=== PATIENT | male | born 1955 | race African-American/Black ===

== ENCOUNTER 2018-12-03 09:57 | Inpatient (IN) | payer OTHER ==
[2018-12-03 10:20] VITALS: BMI 21.6
--- NOTE | 2018-12-03 10:38 | HP ---
CIWA Score - Admission Criteria [facility] Guidelines: Admission for Medically Managed Detox: Requires at least one of the followin. CIWA greater than 12 2. Seizures within the past 24 hours 3. Delirium tremens within the past 24 hours 4. Hallucinations within the past 24 hours 5. Acute intervention needed for co occurring medical disorder 6. Acute intervention needed for co occurring psychiatric disorder 7. Severe withdrawal that cannot be handled at a lower level of care (continued vomiting, continued diarrhea, abnormal vital signs) requiring intravenous medication and/or fluids 8. Admission ROS [facility] Chief Complaint: "i want to go to rehab for my cocaine use" Allergies/Adverse Reactions: Allergies Allergy/AdvReac Type Severity Reaction Status Date / Time No Known Allergies Allergy Verified 12/03/18 10:15 History of Present Illness: Patient is a 63 year old black male with history of cocaine dependence. He has never been to detox or other program. However, he has attempted OTC multiple times and failed to be abstinent. He wants to enter rehab and then follow up with outpatient treatment. Patient smokes 2-3 ciggs per day for many years. Used to smoke 1ppd until 1999. PMH: Arthritis Psurg Hx: None All: NKDA Housing he is working to obtain. He is also a of [place] war. Exam Limitations: No Limitations - Ebola screening Have you traveled outside of the country in the last 21 days: No (N) Have you had contact with anyone from an Ebola affected area: No Have you been sick,other than usual withdrawal symptoms: No Do you have a fever: No - Review of Systems Constitutional: No Symptoms Reported EENT: reports: No Symptoms Reported Respiratory: reports: No Symptoms reported Cardiac: reports: No Symptoms Reported GI: reports: No Symptoms Reported : reports: No Symptoms Reported Musculoskeletal: reports: Joint Pain Integumentary: reports: No Symptoms Reported Neuro: reports: No Symptoms reported Endocrine: reports: No Symptoms Reported Hematology: reports: No Symptoms Reported Psychiatric: reports: No Sypmtoms Reported, Mood/Affect Appropiate, Orientated x3 Other Systems: Reviewed and Negative Patient History - Patient Medical History Hx Anemia: No Hx Asthma: No Hx Chronic Obstructive Pulmonary Disease (COPD): No Hx Cancer: No Hx Cardiac Disorders: No Hx Congestive Heart Failure: No Hx Hypertension: Yes (amlodipine) Hx Hypercholesterolemia: No Hx Pacemaker: No HX Cerebrovascular Accident: No Hx Seizures: No Hx Dementia: No Hx Diabetes: No Hx Gastrointestinal Disorders: No Hx Liver Disease: No Hx Genitourinary Disorders: No Hx Sexually Transmitted Disorders: No Hx Renal Disease (ESRD): No Hx Thyroid Disease: No Hx Human Immunodeficiency Virus (HIV): No (last tested 1 year ago) Hx Hepatitis C: No (las tested 1 year ago) Hx Depression: No Hx Suicide Attempt: No Hx Bipolar Disorder: No Hx Schizophrenia: No - Patient Surgical History Past Surgical History: No - PPD History Previous Implant?: Yes Documented Results: Negative w/proof Implanted On Prior [facility]mission?: No Date: 12/05/17 ([facility]) Results: negative PPD to be Administered?: No - Reproductive History Patient is a Female of Child Bearing Age (11 -55 yrs old): No - Smoking Cessation Smoking history: Current every day smoker Have you smoked in the past 12 months: Yes Aproximately how many cigarettes per day: 3 Hx Chewing Tobacco Use: No Initiated information on smoking cessation: No 'Breaking Loose' booklet given: 12/03/18 - Substance & Tx. History Hx Alcohol Use: No Hx Substance Use: Yes Substance Use Type: Cocaine Hx Substance Use Treatment: Yes - Substances abused Crack Substance route: Smoking Frequency: 3-6 times per week Amount used: $60 Age of first use: 31 Date of last use: 12/02/18 Family Disease History - Family Disease History Family History: Unremarkable Admission Physical Exam BHS - Vital Signs Vital Signs: Vital Signs - 24 hr 12/03/18 10:16 Temperature 98.2 F Pulse Rate 71 Respiratory 20 Rate Blood Pressure 135/87 - Physical General Appearance: Yes: No Apparent Distress, Nourished, Appropriately Dressed HEENTM: Yes: EOMI, Normocephalic, ALVIN, Pharynx Normal, Tm's normal Respiratory: Yes: Chest Non-Tender, Lungs Clear, Normal Breath Sounds, No Respiratory Distress, No Accessory Muscle Use Neck: Yes: No masses,lesions,Nodules, Supple, Trachea in good position Breast: Yes: Within Normal Limits Cardiology: Yes: Regular Rhythm, Regular Rate, S1, S2 Abdominal: Yes: Normal Bowel Sounds, Non Tender, Flat Genitourinary: Yes: Within Normal Limits Back: Yes: Normal Inspection Musculoskeletal: Yes: full range of Motion, Gait Steady Extremities: Yes: Normal Capillary Refill, Normal Inspection, Normal Range of Motion, Non-Tender Neurological: Yes: replenishment specialist II-XII NML intact, Fully Oriented, Alert, Motor Strength 5/5, Normal Mood/Affect Integumentary: Yes: Normal Color, Warm Lymphatic: Yes: Within Normal Limits - Diagnostic (1) Cocaine use disorder, mild, abuse Current Visit: Yes Status: Acute (2) Hypertension Current Visit: Yes Status: Acute Cleared for Admission S - Detox or Rehab [facility] Level of Care: Medically Managed Screened but not Admitted - Documentation of Visit Screened but not Admitted: No Breathalyzer - Breathalyzer Breathalyzer: 0 Vital Signs - Vital Signs Vital signs refused: No Temperature: 98.2 F Temperature source: Oral Pulse Rate: 71 Respiratory Rate: 20 Blood Pressure: 135/87 BP Location: Left Arm Blood Pressure position: Sitting - Height Height: 5 ft 7 in - Weight Weight: 138 lb Weight measurement method: Standing scale - BMI Body Mass Index (BMI): 21.6 - Bowel Function Bowel Movement: No Urine Drug Screen - Control Is test valid?: Yes - Results Drug screen NEGATIVE: No Urine drug screen results: FRANNIE-Cocaine Inpatient Rehab Admission - Rehab Decision to Admit Inpatient rehab admission?: Yes - Initial Determination Are CD services needed?: Yes Free of communicable disease: Yes Not in need of hospitalization: Yes - Rehab Admission Criteria Previous failed treatment: Yes Poor recovery environment: Yes Comorbidities: Yes Lacks judgement: Yes Patient is meeting Inpatient Rehab admission criteria:: Yes
[2018-12-03] MEDS ORDERED: guaiFENesin 200 MG/10 ML 10 ML UNIT-DOSE CUPS PO PRN (10:45)
[2018-12-03] MEDS ORDERED: MAGNESIUM CITRATE 300 ML BOTTLE PO PRN (10:45)
[2018-12-03] MEDS ORDERED: ACETAMINOPHEN 325 MG TABLET (FP) PO PRN (10:45)
[2018-12-03] MEDS ORDERED: P-EPHED 60MG/TRIPROLIDI 2.5MG TABLET PO PRN (10:45)
[2018-12-03] MEDS ORDERED: IBUPROFEN 400 MG TABLET (FP) PO PRN (10:45)
[2018-12-03] MEDS ORDERED: MENTHOL/PHENOL 1 EACH UD MM PRN (10:45)
[2018-12-03] MEDS ORDERED: MAGNESIUM HYDROX 2400MG/30ML ORAL SUSPENSION 30 ML CUP PO PRN (10:45)
[2018-12-03] MEDS ORDERED: LOPERAMIDE HCL 2 MG CAPSULE PO PRN (10:45)
[2018-12-03] MEDS: amLODIPine BESYLATE 10 MG TABLET (FP) PO SCH (11:52)
[2018-12-03] MEDS: CLOTRIMAZOLE 1% CREAM 15 GM TUBE TP SCH ×2 (12:52→22:02)
[2018-12-03 15:05] LABS: HEMATOCRIT 39.3 % (35.4-49); HEMOGLOBIN 13.2 GM/dL (11.7-16.9); MCH 29.9 pg (25.7-33.7); MCHC 33.7 g/dl (32.0-35.9); MEAN CELL VOLUME 88.6 fl (80-96); MEAN PLT VOLUME 9.4 fl (7.5-11.1); PLATELET COUNT 237 K/MM3 (134-434); RBC 4.43 M/mm3 (4.00-5.60); WHITE BLOOD COUNT 7.1 K/mm3 (4.0-10.0)
[2018-12-03 15:21] LABS: ALBUMIN 3.7 g/dl (3.4-5.0); BILIRUBIN,TOTAL 0.4 mg/dL (0.2-1); BLOOD UREA NITROGEN 16.7 mg/dL (7-18); CALCIUM 9.9 mg/dL (8.5-10.1); CREATININE 1.4 mg/dL (0.55-1.3); POTASSIUM 3.6 mmol/L (3.5-5.1); TOT PROT 6.4 g/dl (6.4-8.2)
[2018-12-03] MEDS: THIAMINE HCL 100 MG TABLET (FP) PO SCH (21:46)
[2018-12-03] MEDS: NICOTINE POLACRILEX 2 MG GUM BUC PRN (21:47)
[2018-12-03] MEDS ORDERED: MELATONIN 5 MG TABLETS PO PRN (22:00)
[2018-12-04] MEDS: NICOTINE POLACRILEX 2 MG GUM BUC PRN ×2 (06:18→21:48)
[2018-12-04] MEDS: CLOTRIMAZOLE 1% CREAM 15 GM TUBE TP SCH ×2 (10:37→21:48)
[2018-12-04] MEDS: amLODIPine BESYLATE 10 MG TABLET (FP) PO SCH (10:37)
[2018-12-04] MEDS: PRENATAL VITAMINS W/ FOLIC ACID TABLET (FP) PO SCH (10:37)
[2018-12-04 12:09] LABS: URINE APPEARANCE CLEAR; URINE BILIRUBIN NEGATIVE (NEGATIVE); URINE COLOR YELLOW; URINE GLUCOSE (UA) NEGATIVE (NEGATIVE); URINE KETONE NEGATIVE (NEGATIVE); URINE LEUK ESTERASE NEGATIVE (NEGATIVE); URINE NITRITE NEGATIVE (NEGATIVE); URINE PROTEIN NEGATIVE (NEGATIVE); URINE UROBILINOGEN 0.2 mg/dL (0.2-1.0)
[2018-12-04] MEDS: THIAMINE HCL 100 MG TABLET (FP) PO SCH (21:48)
[2018-12-05] MEDS: NICOTINE POLACRILEX 2 MG GUM BUC PRN ×3 (06:30→22:13)
[2018-12-05] MEDS: CLOTRIMAZOLE 1% CREAM 15 GM TUBE TP SCH ×2 (10:16→22:12)
[2018-12-05] MEDS: PRENATAL VITAMINS W/ FOLIC ACID TABLET (FP) PO SCH (10:16)
[2018-12-05] MEDS: amLODIPine BESYLATE 10 MG TABLET (FP) PO SCH (10:16)
[2018-12-05] MEDS: THIAMINE HCL 100 MG TABLET (FP) PO SCH (22:12)
[2018-12-06] MEDS: amLODIPine BESYLATE 10 MG TABLET (FP) PO SCH (10:30)
[2018-12-06] MEDS: PRENATAL VITAMINS W/ FOLIC ACID TABLET (FP) PO SCH (10:30)
[2018-12-06] MEDS: CLOTRIMAZOLE 1% CREAM 15 GM TUBE TP SCH ×2 (10:30→21:44)
[2018-12-06] MEDS: NICOTINE POLACRILEX 2 MG GUM BUC PRN ×3 (10:32→21:44)
[2018-12-06] MEDS: THIAMINE HCL 100 MG TABLET (FP) PO SCH (21:44)
[2018-12-07] MEDS: amLODIPine BESYLATE 10 MG TABLET (FP) PO SCH (10:45)
[2018-12-07] MEDS: CLOTRIMAZOLE 1% CREAM 15 GM TUBE TP SCH ×2 (10:45→21:53)
[2018-12-07] MEDS: PRENATAL VITAMINS W/ FOLIC ACID TABLET (FP) PO SCH (10:45)
[2018-12-07] MEDS: NICOTINE POLACRILEX 2 MG GUM BUC PRN ×2 (10:46→21:53)
[2018-12-07] MEDS: THIAMINE HCL 100 MG TABLET (FP) PO SCH (21:52)
[2018-12-08] MEDS: MAG HYDROX/AL HYDROX/SIMETH 30 ML UNIT-DOSE CUP PO PRN (08:06)
[2018-12-08] MEDS: amLODIPine BESYLATE 10 MG TABLET (FP) PO SCH (11:04)
[2018-12-08] MEDS: PRENATAL VITAMINS W/ FOLIC ACID TABLET (FP) PO SCH (11:04)
[2018-12-08] MEDS: NICOTINE POLACRILEX 2 MG GUM BUC PRN ×3 (11:05→21:48)
[2018-12-08] MEDS: CLOTRIMAZOLE 1% CREAM 15 GM TUBE TP SCH ×2 (11:05→21:48)
[2018-12-08] MEDS: THIAMINE HCL 100 MG TABLET (FP) PO SCH (21:47)
[2018-12-09] MEDS: PRENATAL VITAMINS W/ FOLIC ACID TABLET (FP) PO SCH (10:44)
[2018-12-09] MEDS: CLOTRIMAZOLE 1% CREAM 15 GM TUBE TP SCH ×2 (10:44→22:09)
[2018-12-09] MEDS: amLODIPine BESYLATE 10 MG TABLET (FP) PO SCH (10:44)
[2018-12-09] MEDS: NICOTINE POLACRILEX 2 MG GUM BUC PRN ×2 (10:44→22:11)
[2018-12-09] MEDS: MAG HYDROX/AL HYDROX/SIMETH 30 ML UNIT-DOSE CUP PO PRN (22:07)
[2018-12-09] MEDS: THIAMINE HCL 100 MG TABLET (FP) PO SCH (22:08)
[2018-12-10] MEDS: amLODIPine BESYLATE 10 MG TABLET (FP) PO SCH (10:47)
[2018-12-10] MEDS: PRENATAL VITAMINS W/ FOLIC ACID TABLET (FP) PO SCH (10:47)
[2018-12-10] MEDS: CLOTRIMAZOLE 1% CREAM 15 GM TUBE TP SCH ×2 (10:48→22:02)
[2018-12-10] MEDS: NICOTINE POLACRILEX 2 MG GUM BUC PRN ×3 (10:49→22:03)
--- NOTE | 2018-12-10 11:35 | PN ---
[facility] Progress Note Note: Pt c/o bilateral hand pain, right hand more painful with movement than left hand. Pt states it is a chronic complaint for many years and saw his primary provider in the past but never followed up with appointments. Pt denies any recent truama or falls. 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 Vital Signs - 24 hr 12/10/18 12/10/18 12/10/18 00:30 03:30 06:55 Temperature 98.2 F Pulse Rate 75 Respiratory 18 18 18 Rate Blood Pressure 138/84 Laboratory Tests 12/03/18 12/03/18 12/03/18 11:10 11:10 11:10 WBC 7.1 RBC 4.43 Hgb 13.2 Hct 39.3 MCV 88.6 MCH 29.9 MCHC 33.7 RDW 15.0 Plt Count 237 MPV 9.4 Sodium 142 Potassium 3.6 Chloride 106 Carbon Dioxide 30 Anion Gap 5 L BUN 16.7 Creatinine 1.4 H Est GFR (CKD-EPI)AfAm 61.97 Est GFR (CKD-EPI)NonAf 53.47 Random Glucose 83 Calcium 9.9 Total Bilirubin 0.4 AST 26 ALT 18 Alkaline Phosphatase 63 Total Protein 6.4 Albumin 3.7 Urine Color Urine Appearance Urine pH Ur Specific Comfort Urine Protein Urine Glucose (UA) Urine Ketones Urine Blood Urine Nitrite Urine Bilirubin Urine Urobilinogen Ur Leukocyte Esterase RPR Titer Nonreactive Hep C Ab Diagnostic HIV 1&2 Ag/Ab, 4th Gen HIV 1&2 Antibody Screen HIV P24 Antigen TB (QFT) Incubation TB Test (QFT) Nil TB Test (QFT) Mitogen TB Test (QFT) Antigen TB Test (QFT) TB Positive Criteria 12/03/18 12/03/18 12/04/18 11:10 11:10 09:00 WBC RBC Hgb Hct MCV MCH MCHC RDW Plt Count MPV Sodium Potassium Chloride Carbon Dioxide Anion Gap BUN Creatinine Est GFR (CKD-EPI)AfAm Est GFR (CKD-EPI)NonAf Random Glucose Calcium Total Bilirubin AST ALT Alkaline Phosphatase Total Protein Albumin Urine Color Yellow Urine Appearance Clear Urine pH 5.0 Ur Specific Comfort 1.007 L Urine Protein Negative Urine Glucose (UA) Negative Urine Ketones Negative Urine Blood Negative Urine Nitrite Negative Urine Bilirubin Negative Urine Urobilinogen 0.2 Ur Leukocyte Esterase Negative RPR Titer Hep C Ab Diagnostic HIV 1&2 Ag/Ab, 4th Gen HIV 1&2 Antibody Screen Cancelled HIV P24 Antigen Cancelled TB (QFT) Incubation TB Test (QFT) Nil 0.05 TB Test (QFT) Mitogen >10.00 TB Test (QFT) Antigen 0.06 TB Test (QFT) Negative TB Positive Criteria 12/04/18 12/04/18 10:00 10:40 WBC RBC Hgb Hct MCV MCH MCHC RDW Plt Count MPV Sodium Potassium Chloride Carbon Dioxide Anion Gap BUN Creatinine Est GFR (CKD-EPI)AfAm Est GFR (CKD-EPI)NonAf Random Glucose Calcium Total Bilirubin AST ALT Alkaline Phosphatase Total Protein Albumin Urine Color Urine Appearance Urine pH Ur Specific Comfort Urine Protein Urine Glucose (UA) Urine Ketones Urine Blood Urine Nitrite Urine Bilirubin Urine Urobilinogen Ur Leukocyte Esterase RPR Titer Hep C Ab Diagnostic 0.1 HIV 1&2 Ag/Ab, 4th Gen Non reactive HIV 1&2 Antibody Screen HIV P24 Antigen TB (QFT) Incubation TB Test (QFT) Nil TB Test (QFT) Mitogen TB Test (QFT) Antigen TB Test (QFT) TB Positive Criteria Upper Extremities Exam: Active ROM all extremities/digits except slight limitation on ROM of right wrist lateral flexion with pain expressed. No swelling,redness or broken skin membrane. A/P Arthritis Wrist pain,bilateral D/w pt will order naprosyn 500 mg po bid x 7 days then re-evaluate. increase po fluids.
[2018-12-10] MEDS ORDERED: NAPROXEN 500 MG TABLET (FP) PO ONE (12:30)
[2018-12-10] MEDS: THIAMINE HCL 100 MG TABLET (FP) PO SCH (22:02)
[2018-12-10] MEDS: NAPROXEN 500 MG TABLET (FP) PO SCH (22:02)
[2018-12-11] MEDS: amLODIPine BESYLATE 10 MG TABLET (FP) PO SCH (10:27)
[2018-12-11] MEDS: NAPROXEN 500 MG TABLET (FP) PO SCH (10:27)
[2018-12-11] MEDS: PRENATAL VITAMINS W/ FOLIC ACID TABLET (FP) PO SCH (10:27)
[2018-12-11] MEDS: CLOTRIMAZOLE 1% CREAM 15 GM TUBE TP SCH ×2 (10:27→21:36)
[2018-12-11] MEDS: NICOTINE POLACRILEX 2 MG GUM BUC PRN ×2 (10:28→21:36)
[2018-12-11] MEDS: THIAMINE HCL 100 MG TABLET (FP) PO SCH (21:35)
[2018-12-12] MEDS: NICOTINE POLACRILEX 2 MG GUM BUC PRN ×4 (06:36→21:40)
[2018-12-12] MEDS: amLODIPine BESYLATE 10 MG TABLET (FP) PO SCH (10:29)
[2018-12-12] MEDS: PRENATAL VITAMINS W/ FOLIC ACID TABLET (FP) PO SCH (10:29)
[2018-12-12] MEDS: CLOTRIMAZOLE 1% CREAM 15 GM TUBE TP SCH ×2 (10:30→21:40)
[2018-12-12] MEDS: THIAMINE HCL 100 MG TABLET (FP) PO SCH (21:39)
[2018-12-13] MEDS: NAPROXEN 500 MG TABLET (FP) PO PRN ×2 (06:07→22:05)
[2018-12-13] MEDS: NICOTINE POLACRILEX 2 MG GUM BUC PRN ×2 (06:08→10:11)
[2018-12-13] MEDS: CLOTRIMAZOLE 1% CREAM 15 GM TUBE TP SCH ×2 (10:09→22:04)
[2018-12-13] MEDS: PRENATAL VITAMINS W/ FOLIC ACID TABLET (FP) PO SCH (10:09)
[2018-12-13] MEDS: amLODIPine BESYLATE 10 MG TABLET (FP) PO SCH (10:09)
[2018-12-13] MEDS: THIAMINE HCL 100 MG TABLET (FP) PO SCH (22:05)
[2018-12-14] MEDS: NICOTINE POLACRILEX 2 MG GUM BUC PRN ×3 (06:18→22:00)
[2018-12-14] MEDS: PRENATAL VITAMINS W/ FOLIC ACID TABLET (FP) PO SCH (10:29)
[2018-12-14] MEDS: amLODIPine BESYLATE 10 MG TABLET (FP) PO SCH (10:29)
[2018-12-14] MEDS: CLOTRIMAZOLE 1% CREAM 15 GM TUBE TP SCH ×2 (10:29→21:55)
[2018-12-14] MEDS: THIAMINE HCL 100 MG TABLET (FP) PO SCH (21:58)
[2018-12-14] MEDS: NAPROXEN 500 MG TABLET (FP) PO PRN (21:58)
[2018-12-15 07:48] VITALS: BP 130/87; PULSE 84; TEMP 97.7
--- NOTE | 2018-12-15 09:14 | DS ---
[facility] Rehab Discharge Summary - [facility] Rehab Discharge Summary Admission Date: 12/03/18 Discharge Date: 12/15/18 - History Present History: Cocaine dependence Additional Comments: Pt is a 63 y/o male with a hx of cocaine admitted to rehab and discharging today. Pt is a and reports primary care at [facility]. Pertinent Past History: HTN Hx Irregular HR - Discharge Physical Exam Vital Signs: Vital Signs Temperature 97.7 F 12/15/18 07:47 Pulse Rate 84 12/15/18 07:47 Respiratory Rate 18 12/15/18 07:47 Blood Pressure 130/87 12/15/18 07:47 O2 Sat by Pulse Oximetry (%) Alert o x 3 nad oob ambulating with steady gait Heent:Normocephalic,eomi,ana m,hearing grossly normal Cardiac;s1 s2, HR 84, irreg rythym Lungs;cta,aylin. Abdomen:soft,+bs,nt,nd Extremities/Skin:No edema,no cyanosis,full ROM;skin intact Pertinent Admission Physical Exam Findings: Laboratory Tests 12/03/18 12/03/18 12/03/18 11:10 11:10 11:10 WBC 7.1 RBC 4.43 Hgb 13.2 Hct 39.3 MCV 88.6 MCH 29.9 MCHC 33.7 RDW 15.0 Plt Count 237 MPV 9.4 Sodium 142 Potassium 3.6 Chloride 106 Carbon Dioxide 30 Anion Gap 5 L BUN 16.7 Creatinine 1.4 H Est GFR (CKD-EPI)AfAm 61.97 Est GFR (CKD-EPI)NonAf 53.47 Random Glucose 83 Calcium 9.9 Total Bilirubin 0.4 AST 26 ALT 18 Alkaline Phosphatase 63 Total Protein 6.4 Albumin 3.7 Urine Color Urine Appearance Urine pH Ur Specific [place] Urine Protein Urine Glucose (UA) Urine Ketones Urine Blood Urine Nitrite Urine Bilirubin Urine Urobilinogen Ur Leukocyte Esterase RPR Titer Nonreactive Hep C Ab Diagnostic HIV 1&2 Ag/Ab, 4th Gen HIV 1&2 Antibody Screen HIV P24 Antigen TB (QFT) Incubation TB Test (QFT) Nil TB Test (QFT) Mitogen TB Test (QFT) Antigen TB Test (QFT) TB Positive Criteria 12/03/18 12/03/18 12/04/18 11:10 11:10 09:00 WBC RBC Hgb Hct MCV MCH MCHC RDW Plt Count MPV Sodium Potassium Chloride Carbon Dioxide Anion Gap BUN Creatinine Est GFR (CKD-EPI)AfAm Est GFR (CKD-EPI)NonAf Random Glucose Calcium Total Bilirubin AST ALT Alkaline Phosphatase Total Protein Albumin Urine Color Yellow Urine Appearance Clear Urine pH 5.0 Ur Specific [place] 1.007 L Urine Protein Negative Urine Glucose (UA) Negative Urine Ketones Negative Urine Blood Negative Urine Nitrite Negative Urine Bilirubin Negative Urine Urobilinogen 0.2 Ur Leukocyte Esterase Negative RPR Titer Hep C Ab Diagnostic HIV 1&2 Ag/Ab, 4th Gen HIV 1&2 Antibody Screen Cancelled HIV P24 Antigen Cancelled TB (QFT) Incubation TB Test (QFT) Nil 0.05 TB Test (QFT) Mitogen >10.00 TB Test (QFT) Antigen 0.06 TB Test (QFT) Negative TB Positive Criteria 12/04/18 12/04/18 10:00 10:40 WBC RBC Hgb Hct MCV MCH MCHC RDW Plt Count MPV Sodium Potassium Chloride Carbon Dioxide Anion Gap BUN Creatinine Est GFR (CKD-EPI)AfAm Est GFR (CKD-EPI)NonAf Random Glucose Calcium Total Bilirubin AST ALT Alkaline Phosphatase Total Protein Albumin Urine Color Urine Appearance Urine pH Ur Specific [place] Urine Protein Urine Glucose (UA) Urine Ketones Urine Blood Urine Nitrite Urine Bilirubin Urine Urobilinogen Ur Leukocyte Esterase RPR Titer Hep C Ab Diagnostic 0.1 HIV 1&2 Ag/Ab, 4th Gen Non reactive HIV 1&2 Antibody Screen HIV P24 Antigen TB (QFT) Incubation TB Test (QFT) Nil TB Test (QFT) Mitogen TB Test (QFT) Antigen TB Test (QFT) TB Positive Criteria Unremarkable/Unchanged - Treatment Discharge Condition: Discharge condition good Hospital Course: Rehabilitated safely and responded well Accepted Aftercare referral - Medication Discharge Medications: Ambulatory Orders Amlodipine Besylate 10 mg PO DAILY 12/03/18 - Medication-Assisted Treatment (MAT) Medication-Assisted Treatment (MAT): No - Discharge Instructions Diet, activity, other medical instructions: Diet:Low salt diet Activity:oob, ad daljit Other medical instructions:follow up with CD aftercare and primary care at [place], [place] - Diagnosis (1) Cocaine use disorder, mild, abuse Status: Chronic (2) Hypertension Status: Chronic Qualifiers: Hypertension type: essential hypertension Qualified Code(s): I10 - Essential (primary) hypertension - Follow-up Referral Minutes to complete discharge: 20 - AMA Did Patient Leave Against Medical Advice: No
[2018-12-15] MEDS: PRENATAL VITAMINS W/ FOLIC ACID TABLET (FP) PO SCH (09:22)
[2018-12-15] MEDS: amLODIPine BESYLATE 10 MG TABLET (FP) PO SCH (09:22)
[2018-12-15] MEDS: CLOTRIMAZOLE 1% CREAM 15 GM TUBE TP SCH (09:23)
[2018-12-15] MEDS: NICOTINE POLACRILEX 2 MG GUM BUC PRN (09:24)
== END 2018-12-15 09:40 | disposition home or self-care (01) | DRG 772 ==
LOC: YASAS 09:57 → Y5N 10:57
PROVIDERS: ADMIT Neuromusculoskeletal Medicine & OMM; ATTEND Neuromusculoskeletal Medicine & OMM
PROC: HZ42ZZZ Group Counseling for Substance Abuse Treatment, Cognitive-Behavioral (ICD-10-PCS; principal; 2018-12-03)
DX: F14.20 Cocaine dependence, uncomplicated (principal); I10 Essential (primary) hypertension; M13.832 Other specified arthritis, left wrist; M13.831 Other specified arthritis, right wrist
CPT/HCPCS: 36415; 80053; 81003; 85027; 86480; 86593; 86803; 87389